=== PATIENT | male | born 1975 | race African-American/Black ===

== ENCOUNTER 2017-04-09 07:11 | Emergency (ER) | payer OTHER ==
[~2017-04-09] VITALS: Ht 193 cm; Wt 81.6 kg
--- NOTE | 2017-04-09 07:39 | PHYS DOC ---
Past Medical History Past Medical History: No Pertinent History Past Surgical History: No Surgical History Alcohol Use: Occasionally Drug Use: None Adult General Chief Complaint Chief Complaint: COUGH HPI HPI Patient is a 41 year old male who presents with a productive cough that began 2 days ago. Patient denies any fever. He states he has history of smoking. Patient denies any significant other medical history. Review of Systems Review of Systems Constitutional: Denies fever or chills [] Eyes: Denies change in visual acuity, redness, or eye pain [] HENT: Denies nasal congestion or sore throat [] Respiratory: cough Cardiovascular: No additional information not addressed in HPI [] GI: Denies abdominal pain, nausea, vomiting, bloody stools or diarrhea [] : Denies dysuria or hematuria [] Musculoskeletal: Denies back pain or joint pain [] Integument: Denies rash or skin lesions [] Neurologic: Denies headache, focal weakness or sensory changes [] Endocrine: Denies polyuria or polydipsia [] Current Medications Current Medications Current Medications Medications (Trade) Dose Ordered Sig/Padmini Start Time Stop Time Status Last Admin Dose Admin Albuterol/ Ipratropium (Duoneb) 3 ml 1X ONCE 04/09/17 08:00 04/09/17 08:01 DC 04/09/17 08:18 3 ML Benzonatate (Tessalon Perle) 100 mg 1X ONCE 04/09/17 08:00 04/09/17 08:01 DC 04/09/17 08:12 100 MG Prednisone (Prednisone) 60 mg 1X ONCE 04/09/17 08:00 04/09/17 08:01 DC 04/09/17 08:12 60 MG Allergies Allergies Allergies Coded Allergies Type Severity Reaction Last Updated Verified No Known Drug Allergies 08/19/13 No Physical Exam Physical Exam Constitutional: Well developed, well nourished, no acute distress, non-toxic appearance. [] HENT: Normocephalic, atraumatic, bilateral external ears normal, oropharynx moist, no oral exudates, nose normal. [] Eyes: PERRLA, EOMI, conjunctiva normal, no discharge. [] Neck: Normal range of motion, no tenderness, supple, no stridor. [] Cardiovascular:Heart rate regular rhythm, no murmur [] Lungs & Thorax: tight chest with diminished breath sounds to posterior lower lung bases Abdomen: Bowel sounds normal, soft, no tenderness, no masses, no pulsatile masses. [] Skin: Warm, dry, no erythema, no rash. [] Back: No tenderness, no CVA tenderness. [] Extremities: No tenderness, no cyanosis, no clubbing, ROM intact, no edema. [] Neurologic: Alert and oriented X 3, normal motor function, normal sensory function, no focal deficits noted. [] Psychologic: Affect normal, judgement normal, mood normal. [] Current Patient Data Vital Signs Vital Signs Date Time Temp Pulse Resp B/P (MAP) Pulse Ox O2 Delivery O2 Flow Rate FiO2 04/09/17 08:23 100 04/09/17 07:50 98.0 79 18 Room Air 98.0 EKG EKG [] Radiology/Procedures Radiology/Procedures [] Course & Med Decision Making Course & Med Decision Making Pertinent Labs and Imaging studies reviewed. (See chart for details) This is a 41-year-old male patient who presents to the ED with symptoms of acute bronchitis. He is a smoker. He is encouraged to consider smoking cessation. He was given a DuoNeb treatment in the ED prednisone and Tessalon Perles. His lungs have cleared up. His breathing is back to baseline. Chest x- ray 2 views interpreted by radiologist are negative for any acute findings. He was discharged with prednisone for 4 more days Tessalon Perles and albuterol inhaler. Dragon Disclaimer Dragon Disclaimer This electronic medical record was generated, in whole or in part, using a voice recognition dictation system. Departure Departure Impression: Primary Impression: Acute bronchitis Additional Impression: Smoking addiction Disposition: 01 HOME, SELF-CARE Condition: STABLE Referrals: NO PCP (PCP) follow up in one week with a doctor from the list provided Patient Instructions: Acute Bronchitis, Smoking Cessation Additional Instructions: You were seen with symptoms consistent with bronchitis. Consider smoking cessation. Use the prescribed medications as ordered. Scripts Albuterol Sulfate (Proair Respiclick) 90 Mcg Aer.pow.ba 1 PUFF IH PRN Q6HRS Y for SHORTNESS OF BREATH, #1 INHALER Prov: MUTUNGA,TIANNA [employer] 04/09/17 Benzonatate (TESSALON PERLE) 100 Mg Capsule 1 CAP PO TID, #30 CAP Prov: MUTUNGA,TIANNA [employer] 04/09/17 Benzonatate (TESSALON PERLE) 100 Mg Capsule 1 CAP PO TID, #30 CAP Prov: TIANNA IBARRA [employer] 04/09/17 Prednisone (PREDNISONE) 50 Mg Tablet 1 TAB PO DAILY, #4 TAB Prov: TIANNA IBARRA [employer] 04/09/17 Problem Qualifiers Primary Impression: Acute bronchitis Bronchitis organism: unspecified organism Qualified Codes: J20.9 - Acute bronchitis, unspecified TIANNA IBARRA [employer] Apr 09, 2017 07:39
[2017-04-09 07:50] VITALS: BP 138/83
[2017-04-09] MEDS ORDERED: IPRATRPIUM/ALBUTEROL 0.5/2.5MG 3 ML NEBU. NEB ONE (08:00)
[2017-04-09] MEDS ORDERED: BENZONATATE 100 MG CAPSULE. PO ONE (08:00)
[2017-04-09] MEDS ORDERED: predniSONE 20 MG TABLET PO ONE (08:00)
--- NOTE | 2017-04-09 08:01 | RAD ---
Indication left-sided chest pain and cough. Frontal and lateral views of the chest were obtained. No prior imaging is available. Heart and pulmonary vessels are normal. There is mild hyperexpansion of the lungs suggesting a chronic process such as emphysema. There is no consolidated pneumonia significant pleural fluid collection or pneumothorax. The visualized bony structures are grossly intact. IMPRESSION: No acute finding. Mild hyperinflation
[2017-04-09] MEDS ORDERED: BENZ100C PO (08:38)
[2017-04-09] MEDS ORDERED: PRED50TA PO (08:38)
[2017-04-09] MEDS ORDERED: PROAIR RESPICL90 MCG IH (08:50)
== END 2017-04-09 08:51 | disposition home or self-care (01) ==
LOC: ER 07:11
DX: J20.9 Acute bronchitis, unspecified (principal); F17.200 Nicotine dependence, unspecified, uncomplicated
CPT/HCPCS: 71020; 94250; 94640; 99284; J7512; J7620